=== PATIENT | female | born 1955 | race Caucasian/White ===

== ENCOUNTER 2016-07-02 02:21 | Emergency (ER) | payer OTHER ==
[~2016-07-02 02:21] MED LIST: ACETAMINOPHEN325 MG PO; ACTONEL150 MG PO; CIPRO500 M1 PO; COUMADIN5 MG PO; COZAAR100 MG PO; IBUPROFEN800 M1 PO; LACTINEX1 EACH PO; LAXATIVE OF CHOICE; PRISTIQ50 MG PO; PROTONIX 40MG T40 MG PO; SYNTHROID75 MCG PO; VITAMIN D2000 UNI1 PO; VITAMIN E400 UNI3 PO
[2016-07-02 03:18] LABS: BASOPHIL 0.3 % (0-2); EOSINOPHIL 0.2 % (0-5); HCT 44.2 % (37.0-47.0); HGB 14.5 g/dl (12.5-16.0); LYMPHOCYTE 4.2 % (15-48); MCH 30.4 pg (25.0-31.0); MCHC 32.8 g/dL (32.0-36.0); MCV 92.7 fL (78.0-100.0); MONOCYTE 3.5 % (0-12); MPV 11.1 fL (6.0-9.5); NEUTROPHIL 91.8 % (41-80); PLT 265 K/uL (150-400); RBC 4.77 M/uL (4.20-5.40); RDW 13.4 % (11.5-14.0)
[2016-07-02 03:20] LABS: WBC 10.8 K/uL (4.0-10.5)
[2016-07-02 03:39] LABS: ALBUMIN 4.2 g/dL (3.4-4.8); BILIRUBIN - TOTAL 0.4 mg/dL (0.1-1.0); CREATININE 0.9 mg/dL (0.5-1.0); POTASSIUM 5.2 mmol/L (3.5-5.1); TOTAL PROTEIN 7.2 g/dL (6.4-8.3)
[2016-07-02 04:19] LABS: BILIRUBIN NEGATIVE (NEGATIVE); BLOOD TRACE-INTACT Ery/uL (NEGATIVE); CLARITY CLEAR (CLEAR); COLOR YELLOW (YELLOW); GLUCOSE (U) NORMAL (NORMAL); KETONE (U) 1+ (SMALL) mg/dL (NEGATIVE); LEUKOCYTES NEGATIVE Leu/uL (NEGATIVE); NITRITE NEGATIVE (NEGATIVE); PROTEIN TRACE (LOW) mg/dL (NEGATIVE); UROBILINOGEN 0.2 mg/dL (0.2-1.0)
[2016-07-02 04:27] LABS: URINARY RBC RARE
[2016-07-02 04:28] LABS: BACTERIA TRACE; MUCOUS TRACE
== END 2016-07-02 04:32 | disposition home or self-care (01) ==
LOC: FER 02:21
PROVIDERS: Emergency Medicine Emergency Medical Services
DX: R11.2 Nausea with vomiting, unspecified (principal); R19.7 Diarrhea, unspecified; I10 Essential (primary) hypertension; F32.9 Major depressive disorder, single episode, unspecified; E86.9 Volume depletion, unspecified; Z79.899 Other long term (current) drug therapy; Z88.5 Allergy status to narcotic agent; Z88.8 Allergy status to other drugs, medicaments and biological substances; Z88.2 Allergy status to sulfonamides; Z79.01 Long term (current) use of anticoagulants; Z80.9 Family history of malignant neoplasm, unspecified; Z86.711 Personal history of pulmonary embolism; Z86.718 Personal history of other venous thrombosis and embolism; Z82.49 Family history of ischemic heart disease and other diseases of the circulatory system
CPT/HCPCS: 36415; 71010; 74000; 80053; 81001; 82150; 83605; 83690; 85025; 87804; 87899; J1885; J2405

== ENCOUNTER 2021-01-02 20:39 | Emergency (ER) | payer OTHER ==
[~2021-01-02 20:39] MED LIST changes: +ELIQUIS2.5 MG PO; +ESTRACE1 MG PO; +FOSAMAX70 MG PO; +METFORMIN HCL500 MG PO; +OMEPRAZOLE40 MG PO; +PAROXETINE 20MG20 MG PO; +PAXIL10 MG PO; +VITAMIN D350 MC3 PO; +VITAMIN E400 UNI4 PO
[2021-01-02 21:20] LABS: BASOPHIL 1.1 % (0-2); EOSINOPHIL 1.8 % (0-7); HGB 12.3 g/dl (12.5-16.0); LYMPHOCYTE 32.9 % (15-48); MCH 31.2 pg (25.0-31.0); MCHC 31.5 g/dL (32.0-36.0); MPV 10.2 fL (6.0-9.5); NEUTROPHIL 55.8 % (41-80); NRBC 0; PLT 285 K/uL (150-400); RBC 3.94 M/uL (4.20-5.40); RDW 13.2 % (11.5-14.0); WBC 9.1 K/uL (4.0-10.5)
[2021-01-02 21:24] LABS: INR 0.91 (0.9-1.2); PROTHROMBIN TIME 11.7 SECONDS (11.8-13.4)
[2021-01-02 21:31] LABS: ALBUMIN 3.4 g/dL (3.4-5.0); BILIRUBIN - TOTAL 0.2 mg/dL (0.2-1.0); BUN/CREAT RATIO (CALC) 18.9 RATIO; CREATININE 0.95 mg/dL (0.51-0.95); GLOBULIN (CALCULATION) 3.4 g/dL; POTASSIUM 4.2 mmol/L (3.5-5.1); TOTAL PROTEIN 6.8 g/dL (6.4-8.2)
== END 2021-01-03 00:41 | disposition home or self-care (01) ==
LOC: FER 20:39
PROVIDERS: Emergency Medicine
DX: L76.22 Postprocedural hemorrhage of skin and subcutaneous tissue following other procedure (principal); I10 Essential (primary) hypertension; E11.9 Type 2 diabetes mellitus without complications; Z88.0 Allergy status to penicillin; Z88.8 Allergy status to other drugs, medicaments and biological substances; Z88.2 Allergy status to sulfonamides
CPT/HCPCS: 36415; 71260; 80053; 85025; 85610; J7030; Q9967